=== PATIENT | female | born 1930 | race Caucasian/White ===

== ENCOUNTER 2017-05-24 09:20 | Emergency (ER) | payer MEDICARE ==
--- NOTE | 2017-05-24 09:55 | ED ---
General Adult HPI - General Chief complaint: Extremity Problem,Nontraumatic Stated complaint: left ankle/Foot pain Time Seen by Provider: 05/24/17 09:31 Source: patient, RN notes reviewed Mode of arrival: wheelchair Limitations: physical limitation - History of Present Illness Initial comments: 86-year-old female presents to the emergency department with a chief complaint of left foot and ankle swelling. Patient states that the swelling started about 12 days ago. She went to Dr. week ago he gave her steroids and she states that did not improve. Patient states that she only has pain to walk on it and she is laying still or has it up there is no pain. Patient denies any history of the past of this. Patient denies any fever or chills. Patient has a history of this in the past. Patient has a swelling to the knee. Patient denies any history of blood clots. Patient was concerned due to the continued swelling so she thought that she should be evaluated. She states she did [facility] however did not tell Social he thought that maybe she could be evaluated today. Patient denies any recent fever, chills, shortness of breath, chest pain, back pain, abdominal pain , nausea vomiting, numbness or tingling, dysuria or hematuria, constipation or diarrhea, headaches or visual changes, or any other current symptoms. - Related Data Home Medications Medication Instructions Recorded Confirmed Ascorbic Acid [Vitamin C] 500 mg PO DAILY 05/24/17 05/24/17 Biotin Forte 1 tab PO DAILY 05/24/17 05/24/17 Calcium Carbonate [Calcium] 1,200 mg PO DAILY 05/24/17 05/24/17 Cyanocobalamin (Vitamin B-12) 1,000 mcg PO DAILY 05/24/17 05/24/17 [Vitamin B-12] Epoetin Thomas [Procrit] 20,000 unit SQ QMONTH 05/24/17 05/24/17 Magnesium 200 mg PO DAILY 05/24/17 05/24/17 Multivitamins, Thera [Multivitamin 1 tab PO DAILY 05/24/17 05/24/17 (formulary)] Olmesartan Medoxomil [Benicar] 40 mg PO DAILY 05/24/17 05/24/17 Oxybutynin Chloride [Ditropan XL] 5 mg PO DAILY 05/24/17 05/24/17 Vit C/E/Zn/Coppr/Lutein/Zeaxan 1 cap PO BID 05/24/17 05/24/17 [Preservision Areds 2 Softgel] Allergies Allergy/AdvReac Type Severity Reaction Status Date / Time cefazolin [From Kefzol] AdvReac Unknown Verified 05/24/17 10:24 Penicillins AdvReac Unknown Verified 05/24/17 10:24 Sulfa (Sulfonamide AdvReac Unknown Verified 05/24/17 10:24 Antibiotics) Review of Systems ROS Statement: Those systems with pertinent positive or pertinent negative responses have been documented in the HPI. ROS Other: All systems not noted in ROS Statement are negative. Past Medical History Past Medical History: Hypertension Additional Past Medical History / Comment(s): anemia History of Any Multi-Drug Resistant Organisms: None Reported Past Surgical History: Adenoidectomy, Appendectomy, Joint Replacement, Orthopedic Surgery, Tonsillectomy Additional Past Surgical History / Comment(s): knee, hip - shoulder, left wrist Past Psychological History: No Psychological Hx Reported Smoking Status: Former smoker Past Alcohol Use History: Rare Past Drug Use History: None Reported General Exam - General Exam Comments Initial Comments: General: The patient is awake and alert, in no distress, and does not appear acutely ill. Neck: The neck is supple, there is no tenderness. Cardiovascular: There is a regular rate and rhythm. No murmur, rub or gallop is appreciated. Respiratory: Lungs are clear to auscultation, respirations are non-labored, breath sounds are equal. No wheezes, stridor, rales, or rhonchi. Musculoskeletal: Sensation intact with 2+ pulses. Pressure. Frontal motion of left hip left knee and left ankle. Patient is appear to have swelling around the left ankle. No redness noted. 2+ pulses throughout. Full range of motion. No point bony tenderness noted to the ankle. Mild tenderness patient of the calcaneus.. Negative Homans sign. Neurological: CN II-XII intact, There are no obvious motor or sensory deficits. Coordination appears grossly intact. Speech is normal. Skin: Skin is warm and dry and no rashes or lesions are noted. Psychiatric: Normal mood and affect. Limitations: physical limitation Course Vital Signs 05/24/17 09:25 Temperature 97.2 F L Pulse Rate 64 Respiratory 16 Rate Blood Pressure 170/73 O2 Sat by Pulse 98 Oximetry Procedures - Orthopedic Splinting/Casting Injury #1 Side: right Lower Extremity Injury Location: foot Lower Extremity Immobilizer: posterior splint (Short leg) Medical Decision Making - Medical Decision Making 86-year-old female presents with a swollen left foot. This time ultrasound is reviewed and negative. X-ray does show a possible calcaneal insufficiency fracture. She does have pain to this area. Did place wrist splint. Discussed using her walker home and follow-up dorsal. We discussed return parameters all patient's and family's questions. They stated the Rodriguez management plan. All questions have been answered. Patient discharged home. - Radiology Data Radiology results: report reviewed, image reviewed Disposition Clinical Impression: Closed left calcaneal fracture Disposition: HOME SELF-CARE Condition: Stable Instructions: Foot Fracture in Children (ED) Additional Instructions: Please use medication as discussed. Please follow up with family doctor if symptoms have not improved over the next two days. Please return to the emergency room if your symptoms increase or worsen or for any other concerns. Referrals: Venecia Wolfe MD [Primary Care Provider] - 1-2 days Devaughn Menendez MD [Medical Doctor] - 1-2 days Time of Disposition: 11:07
--- NOTE | 2017-05-24 10:25 | XR ---
EXAMINATION TYPE: XR ankle complete LT DATE OF EXAM: 05/24/2017 COMPARISON: NONE HISTORY: 86-year-old female pain and swelling for one week TECHNIQUE: 3 views FINDINGS: Osteopenia. Mild diffuse soft tissue swelling. Ankle mortise is with preservation of the di stal tibiofibular overlap. Talar dome appears intact. Subtle curvilinear band of sclerosis within the calcaneal body, superiorly on the lateral view. Otherwise, no acute fracture, subluxation, or disloc ation. Achilles tendon not well delineated. IMPRESSION: 1. Subtle band of sclerosis along the superior mid calcaneal body. Given osteopenia, these could repr esent some prominent trabecular struts. If there is calcaneal pain, a subtle insufficiency fracture w ould be included in the differential. 2. Prominent diffuse soft tissue swelling. Clinically correlate. 3. Achilles tendon not well delineated probably due to the degree of soft tissue swelling. If concern for Achilles tendon injury, ultrasound can be performed.
--- NOTE | 2017-05-24 10:53 | US ---
EXAMINATION TYPE: US venous doppler duplex LE LT DATE OF EXAM: 10:32 AM COMPARISON: None CLINICAL HISTORY: 78-year-old female Pain. No history of blood clots. Takes baby aspirin. Left ankle swelling. No injury. SIDE PERFORMED: Left TECHNIQUE: The lower extremity deep venous system is examined utilizing real time linear array sonog dolly with graded compression, doppler sonography and color-flow sonography. FINDINGS: VESSELS IMAGED: External Iliac Vein (EIV) Common Femoral Vein Deep Femoral Vein Greater Saphenous Vein * Femoral Vein Popliteal Vein Small Saphenous Vein * Proximal Calf Veins (* superficial vessels) Left Leg: Appears negative for DVT IMPRESSION: No evidence for DVT within the left lower extremity imaged from the groin to the upper calf.
[2017-05-24 11:36] VITALS: BP 196/78; PULSE 68; RESP 18; TEMP 98.6
== END 2017-05-24 11:36 | disposition home or self-care (01) ==
LOC: EC 09:20
DX: S92.002A Unspecified fracture of left calcaneus, initial encounter for closed fracture (principal); I10 Essential (primary) hypertension; Z98.890 Other specified postprocedural states; Z87.891 Personal history of nicotine dependence; Z79.899 Other long term (current) drug therapy; Z88.0 Allergy status to penicillin; Z88.1 Allergy status to other antibiotic agents; Z88.2 Allergy status to sulfonamides
CPT/HCPCS: 29515; 99284

== ENCOUNTER → 2017-06-14 | Outpatient (CLI) | payer MEDICARE ==
--- NOTE | 2017-06-14 16:29 | BD ---
EXAMINATION TYPE: MG DEXA axial skeleton. DATE OF EXAM: 06/14/2017 COMPARISON: NONE CLINICAL HISTORY: Height: 5 FT 9 1/2 IN Weight: 147NO FRAX RISK QUESTIONS: Alcohol (3 or more units per day): NO Family History (Parent hip fracture): NO Glucocorticoids (More than 3mos): NO (Ex: prednisone, prednisolone, methylprednisolone, dexamethasone, and hydrocortisone). History of Fracture in Adulthood: YES Secondary Osteoporosis: 1. Type 1 Diabetes: NO 2. Hyperthyroidism: NO 3. Menopause before 45: NO 4. Malnutrition: NO 5. Chronic liver disease: NO Rheumatoid Arthritis: NO Current Tobacco Use: NO RISK FACTORS HISTORY OF: History of Wrist Fracture: LT WRIST When: 2014 Surgery to Spine/Hip(right/left)/Wrist (right/left): LT HIP AND LT WRIST When: 7 YEARS AGOhIP/ 3 YEARS AGO LT WRIST Family History of Osteoporosis: YES Active: YES Postmenopausal woman: ROUGHTLY AGE 48 Lost more than 2 inches in height since high school: YES MEDICATIONS: Additional Medications: BENICAR, BLADDER MEDS, PROCRID SHOT ONCE A MONTH FOR ANEMIA Additional History: RECENT STRESS FX OF LT HEEL EXAM MEASUREMENTS: Bone mineral densitometry was performed using the [employer] System. Bone mineral density as measured about the Lumbar spine is: ----- L1-L4(G/cm2): 0.838 T Score Values are as follows: ----- L2: -3.2 ----- L3: -2.7 ----- L4: -1.8 ----- L1-L4: -2.9 LAST BONE DENSITY 20 YEARS AGO Bone mineral density about the R hip (g/cm2): 0.686 T Score values are as follows: -----R Neck: -2.5 -----R Total: -2.9 LAST BONE DENSITY 20 PLUS YEARS AGO IMPRESSION: Osteoporosis (T Score less than -2.5) as noted by T Score values at the There is increased fracture risk and therapy is usually indicated based on age. Re-Screen 1-2 years. NOTE: T-SCORE=SD OF THE YOUNG ADULT MEAN.
== END ==
LOC: RADBDWWP 10:00
PROVIDERS: ATTEND Internal Medicine Hematology & Oncology
DX: I12.9 Hypertensive chronic kidney disease with stage 1 through stage 4 chronic kidney disease, or unspecified chronic kidney disease (principal); N18.4 Chronic kidney disease, stage 4 (severe); D63.1 Anemia in chronic kidney disease; Z13.820 Encounter for screening for osteoporosis
CPT/HCPCS: 77080

== ENCOUNTER 2018-02-25 10:33 | Inpatient (IN) | payer MEDICARE ==
[2018-02-21 09:34] VITALS: BMI 19.5
[~2018-02-25 10:33] MED LIST: DEXAMETHASONE SOD PHOSPHATE 10 MG/ML 1 ML VIAL IV ONE; LACTATED RINGERS 1,000 ML IV SCH; MIDAZOLAM 2 MG/2 ML VIAL IV PRN; ONDANSETRON 4 MG/2 ML VIAL IVP ONE; Pre Op ABX Message 1 EACH MISC MISCELLANE ONE; fentaNYL (PF) 50 MCG/ML 2 ML AMP IV PRN
[2018-02-25 12:01] LABS: Basophils % (A) 0 %; Eosinophils # (A) 0.1 k/uL (0-0.7); Eosinophils % (A) 1 %; HCT 31.7 % (34.0-46.0); HGB 10.1 gm/dL (11.4-16.0); Hypochromasia Slight; Lymphocytes # (A) 1.1 k/uL (1.0-4.8); Lymphocytes % (A) 12 %; MCH 31.9 pg (25.0-35.0); MCV 99.8 fL (80.0-100.0); Macrocytosis Slight; Mean Platelet Volume 6.9; Monocytes # (A) 0.6 k/uL (0-1.0); Monocytes % (A) 6 %; Neutrophils # (A) 7.8 k/uL (1.3-7.7); Neutrophils % (A) 80 %; Platelet Count 488 k/uL (150-450); RBC 3.18 m/uL (3.80-5.40); RDW 15.4 % (11.5-15.5); WBC 9.7 k/uL (3.8-10.6)
[2018-02-25] MEDS ORDERED: BISACODYL 10 MG SUPP RECTAL PRN (12:01)
[2018-02-25] MEDS ORDERED: traMADol 50 MG TAB PO PRN (12:01)
[2018-02-25] MEDS ORDERED: MAGNESIUM HYDROXIDE 2,400 MG/10 ML CUP PO PRN (12:01)
[2018-02-25] MEDS ORDERED: HYDROmorphone 0.5 MG/0.5 ML SYRINGE IVP PRN (12:01)
[2018-02-25] MEDS ORDERED: NALOXONE 0.4 MG/ML 1 ML VIAL IV PRN (12:01)
[2018-02-25] MEDS ORDERED: NA PHOS,M-B/NA PHOS,DI-BA 133 ML ENEMA RECTAL PRN (12:01)
[2018-02-25] MEDS ORDERED: DIAZEPAM 5 MG TAB PO PRN (12:01)
[2018-02-25] MEDS ORDERED: ONDANSETRON 4 MG/2 ML VIAL IVP PRN (12:01)
[2018-02-25] MEDS ORDERED: LIDOCAINE 1% 20 ML VIAL (10MG/ML) FOR IV START INTRADERMA ONE (12:02)
[2018-02-25 12:11] LABS: Calcium 9.2 mg/dL (8.4-10.2); Potassium 4.9 mmol/L (3.5-5.1)
[2018-02-25] MEDS ORDERED: fentaNYL (PF) 50 MCG/ML 2 ML AMP ONE (14:32)
[2018-02-25] MEDS ORDERED: MIDAZOLAM 2 MG/2 ML VIAL ONE (14:32)
[2018-02-25] MEDS ORDERED: SODIUM CHLORIDE 0.9% 50 ML with CLINDAMYCIN 600 MG IV ONE ×2 (14:59)
--- NOTE | 2018-02-25 15:09 | P.OP ---
Date of Procedure: 02/25/18 Preoperative Diagnosis: Abscess right knee Postoperative Diagnosis: Abscess right knee Procedure(s) Performed: Incision and drainage of abscess right knee Anesthesia: spinal Surgeon: Wang Solomon Program Rep #1: Sultana Conroy Estimated Blood Loss (ml): 10 Pathology: other (Cultures 2) Condition: stable Disposition: PACU Indications for Procedure: This is an 87-year-old female that was seen by me in the office for redness and swelling on the lateral aspect of her right knee. There is evidence of an abscess on the lateral aspect of her right knee and this was drained in the office. Her abscess returned and after discussing the surgical nonsurgical treatment options with her at length I've recommended a formal incision and drainage of the abscess in the operating room. Consent was obtained. Operative Findings: The operative findings are consistent with an abscess of the right knee. Description of Procedure: Patient was seen and evaluated in the preoperative area, the operative site was marked with a skin marker. She was then brought to the operating room and given a spinal anesthetic by the anesthesia department. Preoperative antibiotics were held until after the cultures were obtained. The right lotion reason prepped and draped in usual sterile fashion. [place] timeout was then performed which confirmed the patient's name, surgical site, ALLERGIES, and consent. The lateral aspect of the knee was incised over the abscessed area. Large amount of purulent material was expressed. The abscess did not appear to communicate with the knee joint. This was cultured 2. Next the area was irrigated with pulsatile lavage. After thorough irrigation was performed, incision was lightly closed with 3-0 nylon. A sterile dressing was then applied and patient was transferred recovery room stable condition. The sound assistant NANCY Bernardo was required due the complexity of the surgery and the need for skilled surgical garment fitter.
[2018-02-25] MEDS ORDERED: LACTATED RINGERS 1,000 ML IV ONE ×2 (15:21)
[2018-02-25] MEDS: SODIUM CHLORIDE 0.9% 1,000 ML IV SCH (18:00)
[2018-02-25] MEDS ORDERED: ACETAMINOPHEN TAB 325 MG TAB PO PRN (18:10)
--- NOTE | 2018-02-25 18:34 | P.CONS ---
History of Present Illness - Reason for Consult Possible acute renal failure. - History of Present Illness 87-year-old pleasant female admitted for elective abscess in the lateral aspect of the right knee drainage. Patient underwent incision and drainage of the abscess patient was seen in orthopedic surgery office about a week ago with swelling in the lateral aspect of the left knee with a small abscess which was drained in the office cultures were opted at that time showed strep species which is pansensitive. Patient underwent incision and drainage here because of for nonimprovement and in of her symptoms and was admitted for monitoring. Patient was started on clindamycin. Patient denied any pain at this point of time patient is clinically doing well patient is on multiple medications for pain and opiates will be discontinued as this will be discontinued because of her age. Patient is high risk for delirium from these medications. Patient is already getting tramadol will add Tylenol for her pain. Patient denied any previous history of kidney disease heart disease. Patient does have history of hypertension patient is on PIETER inhibitor patient's creatinine is 1.8 I do not have any of her previous creatinine available at this time to compare to. Patient's BUN/creatinine ratio is consistent with renal azotemia patient does have chronic diarrhea goes 2-3 times a day and the follows up with Dr. Arellano at him as an outpatient for this diarrhea. Patient has multiple ALLERGIES to cephalosporins, penicillins, sulfa drugs because of which patient was started on clindamycin which is appropriate and infectious disease was consulted by primary service, orthopedic surgery. Review of Systems REVIEW OF SYSTEMS: CONSTITUTIONAL: No fever, no malaise, no fatigue. HEENT: No recent visual problems or hearing problems. Denied any sore throat. CARDIOVASCULAR: No chest pain, orthopnea, PND, no palpitations, no syncope. PULMONARY: No shortness of breath, no cough, no hemoptysis. GASTROINTESTINAL: No diarrhea, no nausea, no vomiting, no abdominal pain. Normoactive bowel sounds. NEUROLOGICAL: No headaches, no weakness, no numbness. HEMATOLOGICAL: Denies any bleeding or petechiae. GENITOURINARY: Denies any burning micturition, frequency, or urgency. MUSCULOSKELETAL/RHEUMATOLOGICAL: Denies any joint pain, swelling, or any muscle pain. ENDOCRINE: Denies any polyuria or polydipsia. The rest of the 14-point review of systems is negative. Past Medical History Past Medical History: Hypertension Additional Past Medical History / Comment(s): RT KNEE WRAPPED post I&D today 02/25 w/ Dr Jane, HX OF COLITIS, anemia, URINARY INCONTINENCE History of Any Multi-Drug Resistant Organisms: None Reported Past Surgical History: Adenoidectomy, Appendectomy, Joint Replacement, Orthopedic Surgery, Tonsillectomy Additional Past Surgical History / Comment(s): RT knee SX AND REPLACEMENT, hip - shoulder, left wrist Past Anesthesia/Blood Transfusion Reactions: No Reported Reaction Past Psychological History: No Psychological Hx Reported Smoking Status: Former smoker Past Alcohol Use History: Rare Additional Past Alcohol Use History / Comment(s): QUIT SMOKING APPROX 1972, SMOKED FOR 10 YRS LESS THAN 1PPD Past Drug Use History: None Reported - Past Family History Mother Family Medical History: No Reported History Medications and Allergies Home Medications Medication Instructions Recorded Confirmed Type Ascorbic Acid [Vitamin C] 500 mg PO DAILY 05/24/17 02/25/18 History Biotin Forte 1 tab PO DAILY 05/24/17 02/25/18 History Calcium Carbonate [Calcium] 1,200 mg PO DAILY 05/24/17 02/25/18 History Cyanocobalamin (Vitamin B-12) 1,000 mcg PO DAILY 05/24/17 02/25/18 History [Vitamin B-12] Epoetin Thomas [Procrit] 20,000 unit SQ QMONTH 05/24/17 02/25/18 History Magnesium 200 mg PO DAILY 05/24/17 02/25/18 History Multivitamins, Thera [Multivitamin 1 tab PO DAILY 05/24/17 02/25/18 History (formulary)] Olmesartan Medoxomil [Benicar] 40 mg PO DAILY 05/24/17 02/25/18 History Oxybutynin Chloride [Ditropan XL] 5 mg PO DAILY 05/24/17 02/25/18 History Vit C/E/Zn/Coppr/Lutein/Zeaxan 1 cap PO BID 05/24/17 02/25/18 History [Preservision Areds 2 Softgel] Allergies Allergy/AdvReac Type Severity Reaction Status Date / Time cefazolin [From Kefzol] Allergy Itching/SWE Verified 02/25/18 11:19 LLING Penicillins Allergy Itching/SWE Verified 02/25/18 11:19 LLING Sulfa (Sulfonamide Allergy Itching/SWE Verified 02/25/18 11:19 Antibiotics) LLING Physical Exam Vitals: Vital Signs Temp Pulse Pulse Resp BP BP Pulse Ox 02/25/18 18:04 16 02/25/18 17:01 16 185/78 98 02/25/18 16:01 72 16 135/71 97 02/25/18 15:46 69 16 126/56 97 02/25/18 15:31 73 16 105/53 97 02/25/18 15:16 97.1 F L 74 16 111/53 97 02/25/18 12:00 97.6 F 90 16 160/69 96 Intake and Output 02/25/18 02/25/18 02/25/18 06:59 14:59 22:59 Intake Total 554 100 Output Total 10 Balance 554 90 Intake: IV 554 100 Output: Estimated Blood Loss 10 Other: Weight 63.503 kg PHYSICAL EXAMINATION: GENERAL: The patient is alert and oriented x3, not in any acute distress. Thin will pleasant female HEENT: Pupils are round and equally reacting to light. EOMI. No scleral icterus. No conjunctival pallor. Normocephalic, atraumatic. No pharyngeal erythema. No thyromegaly. CARDIOVASCULAR: S1 and S2 present. No murmurs, rubs, or gallops. PULMONARY: Chest is clear to auscultation, no wheezing or crackles. ABDOMEN: Soft, nontender, nondistended, normoactive bowel sounds. No palpable organomegaly. MUSCULOSKELETAL: Right knee is covered with an Pieter bandage EXTREMITIES: No cyanosis, clubbing, or pedal edema. NEUROLOGICAL: Gross neurological examination did not reveal any focal deficits. SKIN: No rashes. Results CBC & Chem 7: 02/25/18 11:50 02/25/18 10:24 Labs: Abnormal Lab Results - Last 24 Hours (Table) 02/25/18 02/25/18 Range/Units 10:24 11:50 RBC 3.18 L (3.80-5.40) m/uL Hgb 10.1 L (11.4-16.0) gm/dL Hct 31.7 L (34.0-46.0) % Plt Count 488 H (150-450) k/uL Neutrophils # 7.8 H (1.3-7.7) k/uL Carbon Dioxide 21 L (22-30) mmol/L BUN 51 H (7-17) mg/dL Creatinine 1.80 H (0.52-1.04) mg/dL Assessment and Plan Plan: -Abscess in the lateral aspect of the right knee: Status post incision and drainage postoperative day 0: Patient is on clindamycin which will be continued infectious disease will evaluate the patient. Pain management as mentioned above -Renal failure most probably acute renal failure from BUN and creatinine ratio it appears like patient may stay has prerenal azotemia will continue with IV fluids increase IV fluid rate to 100 mL/h repeat basic metabolic profile tomorrow PIETER inhibitor will be held. -Hypertension holding of PIETER inhibitor because of renal dysfunction
[2018-02-25] MEDS: CLINDAMYCIN 900 MG in DEXTROSE 5% IN WATER 50 ML IVPB SCH ×2 (20:59)
[2018-02-25] MEDS: HEPARIN SODIUM,PORCINE 5,000 UNIT/ML 1 ML VIAL SQ SCH (20:59)
[2018-02-25] MEDS: SENNOSIDES-DOCUSATE SODIUM 1 EACH TAB PO SCH (20:59)
[2018-02-26] MEDS: CLINDAMYCIN 900 MG in DEXTROSE 5% IN WATER 50 ML IVPB SCH ×2 (02:15)
[2018-02-26] MEDS: SODIUM CHLORIDE 0.9% 1,000 ML IV SCH ×3 (03:41→21:56)
[2018-02-26] MEDS: HEPARIN SODIUM,PORCINE 5,000 UNIT/ML 1 ML VIAL SQ SCH ×2 (08:25→20:57)
[2018-02-26 08:46] LABS: Basophils # (A) 0.1 k/uL (0-0.2); Basophils % (A) 1 %; Eosinophils # (A) 0.2 k/uL (0-0.7); Eosinophils % (A) 2 %; HCT 29.7 % (34.0-46.0); HGB 9.2 gm/dL (11.4-16.0); Hypochromasia Moderate; Lymphocytes # (A) 1.2 k/uL (1.0-4.8); Lymphocytes % (A) 15 %; MCH 31.3 pg (25.0-35.0); MCHC 31.1 g/dL (31.0-37.0); MCV 100.7 fL (80.0-100.0); Macrocytosis Slight; Mean Platelet Volume 6.6; Monocytes # (A) 0.5 k/uL (0-1.0); Monocytes % (A) 7 %; Neutrophils # (A) 5.7 k/uL (1.3-7.7); Neutrophils % (A) 74 %; Platelet Count 483 k/uL (150-450); RBC 2.95 m/uL (3.80-5.40); RDW 15.1 % (11.5-15.5); WBC 7.7 k/uL (3.8-10.6)
[2018-02-26 08:50] LABS: Calcium 8.8 mg/dL (8.4-10.2); Potassium 5.3 mmol/L (3.5-5.1)
[2018-02-26] MEDS ORDERED: MELOXICAM 7.5 MG TAB PO SCH (09:00)
[2018-02-26] MEDS ORDERED: VANCOMYCIN IV PER PHARMACY 1 EACH MISC MISCELLANE PRN (16:32)
--- NOTE | 2018-02-26 17:20 | P.PN ---
Subjective Progress Note Date: 02/26/18 This is an 87 year-old female who is status post incision and drainage of an abscess of the right knee. Patient states that her pain is well-controlled today. Patient denies any new symptoms or complaints today. Patient denies any fever/chills, numbness, weakness or tingling. Objective - Vital Signs Vital signs: Vital Signs Temp 96.3 F L 02/26/18 07:00 Pulse 85 02/26/18 07:00 Resp 16 02/26/18 07:00 BP 164/79 02/26/18 07:00 Pulse Ox 99 02/26/18 07:00 Intake & Output 02/25/18 02/26/18 02/26/18 18:59 06:59 18:59 Intake Total 654 Output Total 10 Balance 644 Weight 63.503 kg 63.503 kg 63.503 kg Intake: IV 654 Output: Estimated Blood Loss 10 Other: Voiding Method Bedside Commode # Voids 2 - Exam On exam patient is well-appearing, alert and oriented x3, and lying in bed in no acute distress. There is mild drainage noted on the dressing. Dressing is intact. Patient has good range of motion of the right knee. Sensation intact. Calf is soft and nontender to palpation. Neurovascular status and circulatory status are intact. - Labs CBC & Chem 7: 02/26/18 07:52 02/26/18 07:52 Labs: Abnormal Lab Results - Last 24 Hours (Table) 02/26/18 02/26/18 Range/Units 07:52 07:52 RBC 2.95 L (3.80-5.40) m/uL Hgb 9.2 L (11.4-16.0) gm/dL Hct 29.7 L (34.0-46.0) % MCV 100.7 H (80.0-100.0) fL Plt Count 483 H (150-450) k/uL Potassium 5.3 H (3.5-5.1) mmol/L Chloride 108 H (98-107) mmol/L Carbon Dioxide 21 L (22-30) mmol/L BUN 35 H (7-17) mg/dL Creatinine 1.35 H (0.52-1.04) mg/dL Microbiology - Last 24 Hours (Table) 02/25/18 15:07 Gram Stain - Preliminary Knee - Right Wound Culture - Preliminary 02/25/18 15:07 Gram Stain - Preliminary Knee - Right Wound Culture - Preliminary 02/25/18 15:07 Anaerobic Culture - Preliminary Knee - Right 02/25/18 15:07 Anaerobic Culture - Preliminary Knee - Right Assessment and Plan (1) Infection of right knee Current Visit: Yes Status: Acute Code(s): M00.9 - PYOGENIC ARTHRITIS, UNSPECIFIED SNOMED Code(s): 252215137 (2) Status post incision and drainage Current Visit: Yes Status: Acute Code(s): Z98.890 - OTHER SPECIFIED POSTPROCEDURAL STATES SNOMED Code(s): 700052716 (3) Abscess of knee, right Current Visit: Yes Status: Acute Code(s): L02.415 - CUTANEOUS ABSCESS OF RIGHT LOWER LIMB SNOMED Code(s): 12834762 Plan: 1. Weight-bearing as tolerated to the right lower extremity. 2. Daily dressing changes. 3. Cultures pending. 4. Consult infectious disease. 5. Appreciate input from medicine. 6. Possible discharge home in the next 1-2 days.
[2018-02-26] MEDS ORDERED: VANCOMYCIN 1,250 MG in SODIUM CHLORIDE 0.9% 250 ML IVPB STA ×2 (17:29→21:12)
--- NOTE | 2018-02-26 17:56 | P.PN ---
Subjective No overnight events patient's creatinine did improve continue with IV fluids patient doesn't have any pulmonary edema at this point of time. Constitutional: Denied any fatigue denied any fever. Cardio vascular: denied any chest pain, palpitations Gastrointestinal denied any nausea vomiting Pulmonary: Denied any shortness of breath cough Neurologic denied any new focal deficits Objective - Vital Signs Vital signs: Vital Signs Temp 97.0 F L 02/26/18 15:00 Pulse 77 02/26/18 15:00 Resp 16 02/26/18 15:00 BP 114/54 02/26/18 15:00 Pulse Ox 95 02/26/18 15:00 Intake & Output 02/25/18 02/26/18 02/26/18 18:59 06:59 18:59 Intake Total 654 Output Total 10 Balance 644 Weight 63.503 kg 63.503 kg 63.503 kg Intake: IV 654 Output: Estimated Blood Loss 10 Other: Voiding Method Bedside Commode # Voids 2 - Exam PHYSICAL EXAMINATION: GENERAL: The patient is alert and oriented x3, not in any acute distress. Thin will pleasant female HEENT: Pupils are round and equally reacting to light. EOMI. No scleral icterus. No conjunctival pallor. Normocephalic, atraumatic. No pharyngeal erythema. No thyromegaly. CARDIOVASCULAR: S1 and S2 present. No murmurs, rubs, or gallops. PULMONARY: Chest is clear to auscultation, no wheezing or crackles. ABDOMEN: Soft, nontender, nondistended, normoactive bowel sounds. No palpable organomegaly. MUSCULOSKELETAL: Right knee is covered with an Pieter bandage EXTREMITIES: No cyanosis, clubbing, or pedal edema. NEUROLOGICAL: Gross neurological examination did not reveal any focal deficits. SKIN: No rashes. - Labs CBC & Chem 7: 02/26/18 07:52 02/26/18 07:52 Labs: Abnormal Lab Results - Last 24 Hours (Table) 02/26/18 02/26/18 Range/Units 07:52 07:52 RBC 2.95 L (3.80-5.40) m/uL Hgb 9.2 L (11.4-16.0) gm/dL Hct 29.7 L (34.0-46.0) % MCV 100.7 H (80.0-100.0) fL Plt Count 483 H (150-450) k/uL Potassium 5.3 H (3.5-5.1) mmol/L Chloride 108 H (98-107) mmol/L Carbon Dioxide 21 L (22-30) mmol/L BUN 35 H (7-17) mg/dL Creatinine 1.35 H (0.52-1.04) mg/dL Microbiology - Last 24 Hours (Table) 02/25/18 15:07 Gram Stain - Preliminary Knee - Right Wound Culture - Preliminary 02/25/18 15:07 Gram Stain - Preliminary Knee - Right Wound Culture - Preliminary 02/25/18 15:07 Anaerobic Culture - Preliminary Knee - Right 02/25/18 15:07 Anaerobic Culture - Preliminary Knee - Right Assessment and Plan Plan: -Abscess in the lateral aspect of the right knee: Status post incision and drainage postoperative day 0: Patient is on clindamycin which will be continued infectious disease evaluated the patient today, patient's pain is well- controlled -Renal failure most probably acute renal failure from BUN and creatinine ratio it appears like patient may stay has prerenal azotemia will continue with IV fluids increase IV fluid rate to 100 mL/h repeat basic metabolic profile tomorrow. Patient did have improvement in creatinine from 1.7-1.3 PIETER inhibitor will be held. -Hypertension holding of PIETER inhibitor because of renal dysfunction, lead the blood pressures stay bit higher because of renal dysfunction
--- NOTE | 2018-02-26 18:44 | CONS ---
CONSULTATION DATE OF SERVICE: 02/26/2018 REASON FOR CONSULTATION: Right knee abscess, status post drainage, and antibiotic recommendations. HISTORY OF PRESENT ILLNESS: The patient is an 87-year-old female with a past medical history significant for right knee arthroplasty many years ago. The patient developed pain, swelling and redness to the lateral aspect of her right knee that apparently has been going on for a week or so. There is a vague history of trauma prior to that. This was drained in the outpatient setting by Dr. Solomon. The patient subsequently was brought to the hospital and she had drainage of the right lateral knee abscess with a large amount of purulent material expressed. Apparently the abscess did not communicate to the knee joint. The patient did receive clindamycin perioperatively. Infectious Disease was consulted for further recommendations regarding antibiotic therapy. The patient's cultures were positive for Staphylococcus lugdunensis back on 02/18/2018. The patient is currently afebrile. The patient denies significant chest pain or shortness of breath or cough. No abdominal pain. She does have very mild pain to the right knee currently; more of a dull aching pain, 3 to 4 out of 10, and no radiation. No abdominal pain. No nausea or vomiting and no diarrhea. REVIEW OF SYSTEMS: CONSTITUTIONAL: Positive for weakness. Denies any high-grade fever. EYES: No complaint. ENT: No complaint. RESPIRATORY: No complaint. CARDIOVASCULAR: No complaint. GENITOURINARY: No complaint. GASTROINTESTINAL: No complaint. MUSCULOSKELETAL: As per HPI. INTEGUMENTARY: As per HPI. PSYCHOLOGICAL: No complaint. ENDOCRINE: No complaint. NEUROLOGICAL: No complaint. PAST MEDICAL HISTORY: 1. Hypertension. 2. Osteoarthritis. 3. Urinary incontinence. 4. Colitis. PAST SURGICAL HISTORY: 1. Adenoidectomy. 2. Appendectomy. 3. Right knee replacement. 4. Tonsillectomy. SOCIAL HISTORY: Remote history of smoking. Quit smoking back in 1972. Rarely drinks. No drug use. FAMILY HISTORY: No pertinent findings noticed. ALLERGIES: 1. PENICILLIN. 2. SULFA. 3. CEFAZOLIN. Mostly with a rash. No anaphylaxis. CURRENT MEDICATIONS: 1. The patient has received clindamycin. 2. Tramadol. 3. Senokot. 4. Zofran. 5. Narcan. 6. Milk of magnesia. 7. Heparin. 8. Dulcolax. 9. Tylenol. PHYSICAL EXAMINATION: Her blood pressure is 164/79 with a pulse of 85, temperature 96.3. She is 99% on room air. General description is an elderly female lying in bed in no distress. No tachypnea or accessory muscle of respiration use. HEENT examination shows pallor. No scleral icterus. Oral mucosa membrane is dry. No pharyngeal erythema or thrush. NECK: Trachea is central. No thyromegaly. LUNGS: Unlabored breathing. Clear to auscultation anteriorly. No wheeze or crackle. HEART: S1, S2. Regular rate and rhythm. ABDOMEN: Soft. No tenderness. No guarding or rigidity. EXTREMITIES: No edema of the feet. Right knee with minimal swelling, minimal drainage. Slightly warm to touch. No foul smell. Neurologically the patient is awake, alert, oriented x3. Mood and affect normal. LABS: Hemoglobin is 9.2, white count 7.7, BUN of 35, creatinine 1.35. Potassium was 5.3. OR cultures are currently pending. No blood cultures were done. Culture done from synovial fluid back on 02/18 showed Staphylococcus lugdunensis, which was penicillin- sensitive. DIAGNOSTIC IMPRESSION AND PLAN: 1. Patient with right lateral knee abscess with outpatient culture positive for Streptococcus lugdunensis in a patient who is status post drainage of this abscess with operative report indicative of no communication with the knee joint. In view of the underlying prosthetic knee, would recommend aggressive treatment of this infection to prevent involvement of the knee. 2. Patient with a history of PENICILLIN, SULFA AND CEFAZOLIN ALLERGY, which limits the number of antibiotics that could be safely used. PLAN: 1. Blood cultures x2 STAT. 2. Will obtain baseline sed rate and CRP. 3. Vancomycin, Pharmacy to dose; target of 415. 4. The patient likely will need a PICC line for outpatient IV antibiotic therapy, as we do not have a good oral option at this point. Thank you for this consultation. Will follow this patient along with you. Daughter was present at the bedside. Her questions were answered. MMODL / IJN: [id number] /
[2018-02-26 19:35] LABS: Erythrocyte Sedimentation Rate 111 mm/hr (0-20)
[2018-02-26] MEDS: SENNOSIDES-DOCUSATE SODIUM 1 EACH TAB PO SCH (20:58)
[2018-02-27] MEDS: HEPARIN SODIUM,PORCINE 5,000 UNIT/ML 1 ML VIAL SQ SCH ×2 (08:28→22:35)
[2018-02-27] MEDS: OXYBUTYNIN XL 5 MG TAB.ER.24 PO SCH (08:28)
[2018-02-27 08:33] LABS: Calcium 8.6 mg/dL (8.4-10.2)
--- NOTE | 2018-02-27 10:11 | P.PN ---
Subjective Progress Note Date: 02/27/18 This is an 87 year-old female who is status post incision and drainage of an abscess of the right knee. This is postoperative day #2. Patient is seen and evaluated at bedside with Dr. Wang Solomon. Patient states that her pain in the right knee has improved. Patient denies any new symptoms or complaints today. Patient denies any fever/chills, numbness, weakness or tingling. Objective - Vital Signs Vital signs: Vital Signs Temp 97.0 F L 02/27/18 06:16 Pulse 78 02/27/18 06:16 Resp 14 02/27/18 06:16 BP 136/64 02/27/18 06:16 Pulse Ox 97 02/27/18 06:16 Intake & Output 02/26/18 02/27/18 02/27/18 18:59 06:59 18:59 Weight 63.503 kg 63.503 kg Other: Voiding Method Bedside Commode Bedside Commode # Voids 1 1 # Bowel Movements 1 - Exam On exam patient is well-appearing, alert and oriented x3, and lying in bed in no acute distress. There is mild drainage noted on the dressing. Dressing is intact. Patient has good range of motion of the right knee. Sensation intact. Calf is soft and nontender to palpation. Neurovascular status and circulatory status are intact. - Labs CBC & Chem 7: 02/26/18 07:52 02/27/18 07:59 Labs: Abnormal Lab Results - Last 24 Hours (Table) 02/26/18 02/26/18 02/26/18 Range/Units 07:52 07:52 19:27 RBC 2.95 L (3.80-5.40) m/uL Hgb 9.2 L (11.4-16.0) gm/dL Hct 29.7 L (34.0-46.0) % MCV 100.7 H (80.0-100.0) fL Plt Count 483 H (150-450) k/uL ESR 111 H (0-20) mm/hr Chloride (98-107) mmol/L BUN (7-17) mg/dL Creatinine (0.52-1.04) mg/dL C-Reactive Protein 30.2 H (<10.0) mg/L Vitamin B12 1277.0 H (200.0-944.0) pg/mL 02/27/18 Range/Units 07:59 RBC (3.80-5.40) m/uL Hgb (11.4-16.0) gm/dL Hct (34.0-46.0) % MCV (80.0-100.0) fL Plt Count (150-450) k/uL ESR (0-20) mm/hr Chloride 111 H (98-107) mmol/L BUN 31 H (7-17) mg/dL Creatinine 1.22 H (0.52-1.04) mg/dL C-Reactive Protein (<10.0) mg/L Vitamin B12 (200.0-944.0) pg/mL Microbiology - Last 24 Hours (Table) 02/25/18 15:07 Gram Stain - Preliminary Knee - Right Wound Culture - Preliminary 02/25/18 15:07 Gram Stain - Preliminary Knee - Right Wound Culture - Preliminary Assessment and Plan (1) Infection of right knee Current Visit: Yes Status: Acute Code(s): M00.9 - PYOGENIC ARTHRITIS, UNSPECIFIED SNOMED Code(s): 900258977 (2) Status post incision and drainage Current Visit: Yes Status: Acute Code(s): Z98.890 - OTHER SPECIFIED POSTPROCEDURAL STATES SNOMED Code(s): 732919638 (3) Abscess of knee, right Current Visit: Yes Status: Acute Code(s): L02.415 - CUTANEOUS ABSCESS OF RIGHT LOWER LIMB SNOMED Code(s): 26227309 Plan: 1. Weight-bearing as tolerated to the right lower extremity. 2. Daily dressing changes. 3. Cultures pending. 4. Appreciate input from infectious disease. Patient is awaiting PICC line. 5. Appreciate input from medicine. 6. Possible discharge home in the next 1-2 days.
[2018-02-27] MEDS: SODIUM CHLORIDE 0.9% 1,000 ML IV SCH (13:17)
--- NOTE | 2018-02-27 14:22 | P.PN ---
Subjective No overnight events patient's creatinine did improve continue with IV fluids patient doesn't have any pulmonary edema at this point of time. 02/27/2018 Patient's creatinine improved to 1.2 IV fluids will be discontinued patient is on IV vancomycin presently. Constitutional: Denied any fatigue denied any fever. Cardio vascular: denied any chest pain, palpitations Gastrointestinal denied any nausea vomiting Pulmonary: Denied any shortness of breath cough Neurologic denied any new focal deficits Objective - Vital Signs Vital signs: Vital Signs Temp 97.0 F L 02/27/18 06:16 Pulse 78 02/27/18 06:16 Resp 14 02/27/18 06:16 BP 136/64 02/27/18 06:16 Pulse Ox 97 02/27/18 06:16 Intake & Output 02/26/18 02/27/18 02/27/18 18:59 06:59 18:59 Weight 63.503 kg 63.503 kg Other: Voiding Method Bedside Commode Bedside Commode # Voids 1 1 # Bowel Movements 1 - Exam PHYSICAL EXAMINATION: GENERAL: The patient is alert and oriented x3, not in any acute distress. Thin will pleasant female HEENT: Pupils are round and equally reacting to light. EOMI. No scleral icterus. No conjunctival pallor. Normocephalic, atraumatic. No pharyngeal erythema. No thyromegaly. CARDIOVASCULAR: S1 and S2 present. No murmurs, rubs, or gallops. PULMONARY: Chest is clear to auscultation, no wheezing or crackles. ABDOMEN: Soft, nontender, nondistended, normoactive bowel sounds. No palpable organomegaly. MUSCULOSKELETAL: Right knee is covered with an Pieter bandage EXTREMITIES: No cyanosis, clubbing, or pedal edema. NEUROLOGICAL: Gross neurological examination did not reveal any focal deficits. SKIN: No rashes. - Labs CBC & Chem 7: 02/26/18 07:52 02/27/18 07:59 Labs: Abnormal Lab Results - Last 24 Hours (Table) 02/26/18 02/26/18 02/26/18 Range/Units 07:52 07:52 19:27 RBC 2.95 L (3.80-5.40) m/uL Hgb 9.2 L (11.4-16.0) gm/dL Hct 29.7 L (34.0-46.0) % MCV 100.7 H (80.0-100.0) fL Plt Count 483 H (150-450) k/uL ESR 111 H (0-20) mm/hr Chloride (98-107) mmol/L BUN (7-17) mg/dL Creatinine (0.52-1.04) mg/dL C-Reactive Protein 30.2 H (<10.0) mg/L Vitamin B12 1277.0 H (200.0-944.0) pg/mL 02/27/18 Range/Units 07:59 RBC (3.80-5.40) m/uL Hgb (11.4-16.0) gm/dL Hct (34.0-46.0) % MCV (80.0-100.0) fL Plt Count (150-450) k/uL ESR (0-20) mm/hr Chloride 111 H (98-107) mmol/L BUN 31 H (7-17) mg/dL Creatinine 1.22 H (0.52-1.04) mg/dL C-Reactive Protein (<10.0) mg/L Vitamin B12 (200.0-944.0) pg/mL Microbiology - Last 24 Hours (Table) 02/25/18 15:07 Gram Stain - Preliminary Knee - Right Wound Culture - Preliminary 02/25/18 15:07 Gram Stain - Preliminary Knee - Right Wound Culture - Preliminary Assessment and Plan Plan: -Abscess in the lateral aspect of the right knee: Status post incision and drainage postoperative day 0: Patient is on clindamycin which will be continued infectious disease evaluated the patient today, patient's pain is well- controlled -Renal failure most probably acute renal failure from BUN and creatinine ratio it appears like patient may stay has prerenal azotemia will continue with IV fluids increase IV fluid rate to 100 mL/h repeat basic metabolic profile tomorrow. Patient did have improvement in creatinine from 1.7-1.3 PIETER inhibitor will be held. -Hypertension holding of PIETER inhibitor because of renal dysfunction, lead the blood pressures stay bit higher because of renal dysfunction
[2018-02-27] MEDS: VANCOMYCIN 1,250 MG in SODIUM CHLORIDE 0.9% 250 ML IVPB SCH (17:21)
[2018-02-27] MEDS: SENNOSIDES-DOCUSATE SODIUM 1 EACH TAB PO SCH (22:34)
--- NOTE | 2018-02-28 05:28 | PN ---
PROGRESS NOTE DATE OF SERVICE: 02/27/2018 REASON FOR FOLLOWUP: Right lateral knee abscess and cellulitis. INTERVAL HISTORY: The patient is afebrile. She has been breathing comfortably. Denies having any chest pain, cough. No abdominal pain. the right lateral knee area. PHYSICAL EXAMINATION: On examination, blood pressure 138/64 with a pulse of 79, temperature 98.8. She is 97% on room air. General description is an elderly female lying in bed in no distress. RESPIRATORY SYSTEM: Unlabored breathing, clear to auscultation anteriorly. HEART: S1, S2. Regular rate and rhythm. ABDOMEN: Soft, no tenderness. Right lateral knee wound is currently dressed. Minimal drainage on the dressing. LABS: BUN of 21, creatinine 1.22. Wound culture currently pending. DIAGNOSTIC IMPRESSION AND PLAN: Patient with right lateral knee abscess and cellulitis. Outpatient culture positive for Streptococcus lugdunensis. The patient did have multiple antibiotic allergies. Currently on vancomycin; however, in view of advanced age and high risk of nephrotoxicity in outpatient setting, we will get a PICC line and switch antibiotic therapy to daptomycin for least 2 to 3 weeks depending on the clinical response. Continue with supportive care. MMODL / IJN: [id number] /
[2018-02-28 07:28] LABS: Basophils % (A) 1 %; Eosinophils # (A) 0.2 k/uL (0-0.7); Eosinophils % (A) 3 %; HCT 27.8 % (34.0-46.0); HGB 8.5 gm/dL (11.4-16.0); Hypochromasia Slight; Lymphocytes # (A) 1.5 k/uL (1.0-4.8); Lymphocytes % (A) 17 %; MCH 30.6 pg (25.0-35.0); MCHC 30.7 g/dL (31.0-37.0); MCV 99.8 fL (80.0-100.0); Macrocytosis Slight; Mean Platelet Volume 6.9; Monocytes # (A) 0.7 k/uL (0-1.0); Monocytes % (A) 8 %; Neutrophils % (A) 70 %; Platelet Count 438 k/uL (150-450); RBC 2.79 m/uL (3.80-5.40); WBC 8.6 k/uL (3.8-10.6)
--- NOTE | 2018-02-28 08:10 | P.DS ---
Providers Date of admission: 02/26/18 09:03 Expected date of discharge: 02/28/18 Attending physician: Wang Solomon Consults: 02/25/18 16:53 Consult Physician Routine Consulting Provider: Josselin Vargas Consult Reason/Comments: medical management Do you want consulting provider notified?: Yes 02/25/18 16:55 Consult Physician Routine Consulting Provider: Eber Archer Consult Reason/Comments: right knee abscess, post i&d 02/25/18 Do you want consulting provider notified?: Yes Primary care physician: Yaneth Cuadra - Discharge Diagnosis(es) (1) Infection of right knee Current Visit: Yes Status: Acute (2) Status post incision and drainage Current Visit: Yes Status: Acute (3) Abscess of knee, right Current Visit: Yes Status: Acute Hospital Course: This is an 87-year-old male who presented as an outpatient with an abscess to the lateral aspect of the right knee. The patient was started on a course of outpatient antibiotics, but the abscess did not improve. The patient presents for evaluation. After discussion and consideration patient elects to proceed with incision and drainage of the right knee abscess. The patient is seen preoperatively by Dr. Solomon. Patient is admitted to [facility] on 02/25/2018 for incision and drainage of right knee abscess. The procedure is performed without complication or sequelae. The patient is doing well postoperatively. Labs and vital signs are stable on day of discharge. Patient received a PICC line for outpatient IV antibiotics per infectious disease. On day of discharge patient's knee incision is healing well. There is minimal erythema. There is no drainage noted at this time. There is minimal soft tissue swelling to the knee. Patient has full foot and ankle motion without difficulty or pain. Neurovascular status to the right lower extremity is intact. Patient is discharged to rehab in good condition. Please see med rec for accurate list of home medications. Plan - Discharge Summary Discharge Rx Participant: Yes New Discharge Prescriptions: New Acetaminophen Tab [Tylenol Tab] 1 - 2 tab PO Q6H PRN #90 tablet PRN Reason: Pain No Action Oxybutynin Chloride [Ditropan XL] 5 mg PO DAILY Ascorbic Acid [Vitamin C] 500 mg PO DAILY Cyanocobalamin (Vitamin B-12) [Vitamin B-12] 1,000 mcg PO DAILY Epoetin Thomas [Procrit] 20,000 unit SQ QMONTH Vit C/E/Zn/Coppr/Lutein/Zeaxan [Preservision Areds 2 Softgel] 1 cap PO BID Multivitamins, Thera [Multivitamin (formulary)] 1 tab PO DAILY Magnesium 200 mg PO DAILY Calcium Carbonate [Calcium] 1,200 mg PO DAILY Biotin Forte 1 tab PO DAILY Olmesartan Medoxomil [Benicar] 40 mg PO DAILY Discharge Medication List Ascorbic Acid [Vitamin C] 500 mg PO DAILY 05/24/17 [History] Biotin Forte 1 tab PO DAILY 05/24/17 [History] Calcium Carbonate [Calcium] 1,200 mg PO DAILY 05/24/17 [History] Cyanocobalamin (Vitamin B-12) [Vitamin B-12] 1,000 mcg PO DAILY 05/24/17 [ History] Epoetin Thomas [Procrit] 20,000 unit SQ QMONTH 05/24/17 [History] Magnesium 200 mg PO DAILY 05/24/17 [History] Multivitamins, Thera [Multivitamin (formulary)] 1 tab PO DAILY 05/24/17 [History ] Olmesartan Medoxomil [Benicar] 40 mg PO DAILY 05/24/17 [History] Oxybutynin Chloride [Ditropan XL] 5 mg PO DAILY 05/24/17 [History] Vit C/E/Zn/Coppr/Lutein/Zeaxan [Preservision Areds 2 Softgel] 1 cap PO BID 05/24 [History] Acetaminophen Tab [Tylenol Tab] 1 - 2 tab PO Q6H PRN #90 tablet 02/28/18 [Rx] Follow up Appointment(s)/Referral(s): Wang Solomon DO [Doctor of Osteopathic Medicine] - 10 Days Activity/Diet/Wound Care/Special Instructions: Weightbearing as tolerated to the right lower extremity. Daily dressing changes. Sutures can be removed 7-10 days postoperatively. Please follow up with [facility] and call if any questions or concerns. [phone]. Discharge Disposition: TRANSFER TO SNF/F
[2018-02-28] MEDS: OXYBUTYNIN XL 5 MG TAB.ER.24 PO SCH (09:17)
[2018-02-28] MEDS: HEPARIN SODIUM,PORCINE 5,000 UNIT/ML 1 ML VIAL SQ SCH ×2 (09:17→21:41)
[2018-02-28] MEDS ORDERED: LIDOCAINE 2% SYG (PF) 100 MG/5 ML MISCELLANE ONE (09:49)
--- NOTE | 2018-02-28 10:43 | IR ---
EXAMINATION TYPE: IR cvc insert >=5 years DATE OF EXAM: 02/28/2018 COMPARISON: NONE CLINICAL HISTORY: Infection Needs long-term intravenous access for antibiotics. PROCEDURE: After informed consent, the skin overlying the left brachial vein was localized with ultrasound and n oted to be compressible and patent. An ultrasound image was obtained and submitted on the patient's chart. The overlying skin was prepped and draped and Lidocaine was used for local anesthesia. A ski n marilyn was made with a scalpel. Access was gained to the vein under ultrasound guidance with a 21 ga uge needle and a 0.018 inch wire was advanced. Access site was dilated with Peel-Away sheath and cat heter tailored to the appropriate length and advanced such that the distal tip is at the cavoatrial j unction. Spot image was obtained verifying placement. Catheter was fixed to the skin and a sterile dressing was placed following hemostasis. Catheter was aspirated and flushed with saline. Patient w as discharged in stable condition without complication. Maximal barrier technique is utilized. Ultra sound image is documented on the chart. Ultrasound used with sterile technique. Fluoro time and fluoroscopic images submitted to document procedure: 39 intraoperative C-arm images, 0.2 minutes fluoroscopy time IMPRESSION: STATUS POST ULTRASOUND AND FLUOROSCOPIC GUIDED PICC LINE PLACEMENT, READY FOR USE. THIS PROCEDURE WAS PERFORMED BY THE UNDERSIGNED.
[2018-02-28 15:10] LABS: Calcium 8.6 mg/dL (8.4-10.2); Potassium 4.5 mmol/L (3.5-5.1)
--- NOTE | 2018-02-28 16:37 | P.PN ---
Subjective Progress Note Date: 02/28/18 Progress note being dictated for Dr. Vargas. 02/28/2018. PICC line placed, tolerated procedure well. Maintained on gentle IV fluid hydration with renal function continuing to improve, down to 1.12. Blood pressures controlled, systolic in the 130s. Afebrile, normal WBC Objective - Vital Signs Vital signs: Vital Signs Temp 98.3 F 02/28/18 07:00 Pulse 82 02/28/18 07:00 Resp 16 02/28/18 07:00 BP 144/69 02/28/18 07:00 Pulse Ox 99 02/28/18 07:00 Intake & Output 02/27/18 02/28/18 02/28/18 18:59 06:59 18:59 Intake Total 700 Balance 700 Intake: Oral 700 Other: # Voids 1 1 1 # Bowel Movements 1 1 - Exam GENERAL: The patient is sitting up in chair, alert and oriented x3, not in any acute distress. HEENT: Pupils are round and equally reacting to light. EOMI. No scleral icterus. No conjunctival pallor. Normocephalic, atraumatic. No pharyngeal erythema. No thyromegaly. CARDIOVASCULAR: S1 and S2 present. No murmurs, rubs, or gallops. PULMONARY: Chest is clear to auscultation, no wheezing or crackles. ABDOMEN: Soft, nontender, nondistended, normoactive bowel sounds. No palpable organomegaly. MUSCULOSKELETAL: Right knee is covered with dressing, clean dry and intact EXTREMITIES: No cyanosis, clubbing, or pedal edema. NEUROLOGICAL: Gross neurological examination did not reveal any focal deficits. SKIN: No rashes. Microbiology 02/25/18 15:07 Knee - Right Anaerobic Culture - Preliminary 02/25/18 15:07 Knee - Right Anaerobic Culture - Preliminary 02/26/18 19:34 Blood Blood Culture - Preliminary No Growth after 24 hours 02/25/18 15:07 Knee - Right Gram Stain - Final 02/25/18 15:07 Knee - Right Wound Culture - Final 02/25/18 15:07 Knee - Right Gram Stain - Final 02/25/18 15:07 Knee - Right Wound Culture - Final - Labs CBC & Chem 7: 02/28/18 06:54 02/28/18 14:46 Labs: Abnormal Lab Results - Last 24 Hours (Table) 02/28/18 Range/Units 06:54 RBC 2.79 L (3.80-5.40) m/uL Hgb 8.5 L (11.4-16.0) gm/dL Hct 27.8 L (34.0-46.0) % MCHC 30.7 L (31.0-37.0) g/dL Microbiology - Last 24 Hours (Table) 02/25/18 15:07 Anaerobic Culture - Preliminary Knee - Right 02/25/18 15:07 Anaerobic Culture - Preliminary Knee - Right 02/26/18 19:34 Blood Culture - Preliminary Blood No Growth after 24 hours 02/25/18 15:07 Gram Stain - Final Knee - Right Wound Culture - Final 02/25/18 15:07 Gram Stain - Final Knee - Right Wound Culture - Final Assessment and Plan Assessment: -Abscess in the lateral aspect of the right knee: Status post incision and drainage -Renal failure most probably acute renal failure from BUN and creatinine ratio it appears like patient may stay has prerenal azotemia will continue with IV fluids increase IV fluid rate to 100 mL/h repeat basic metabolic profile tomorrow. LIAY inhibitor will be held. -Hypertension holding of LIYA inhibitor because of renal dysfunction, the blood pressures stay bit higher because of renal dysfunction. Currently controlled. -Status post PICC line placement- Plan: Continue current medication regime ,monitoring and symptomatic treatment. Change IV fluid hydration, close monitoring of renal function, electrolytes with repeat labs ordered for a.m. Discharge planning in progress, pre-CERT pending for subacute rehab. The impression and plan of care has been dictated as directed. : I performed a history and examination of this patient, discussed the same with the dictator. I agree with the dictator's note ,documented as a scribe. Any additional findings or plans will be noted.
[2018-02-28] MEDS ORDERED: SODIUM CHLORIDE 0.9% 1,000 ML IV SCH (16:45)
[2018-02-28] MEDS: VANCOMYCIN 1,250 MG in SODIUM CHLORIDE 0.9% 250 ML IVPB SCH (18:03)
[2018-02-28] MEDS: SENNOSIDES-DOCUSATE SODIUM 1 EACH TAB PO SCH (21:42)
--- NOTE | 2018-02-28 23:53 | PN ---
PROGRESS NOTE DATE OF SERVICE: 02/28/2018 REASON FOR FOLLOWUP: Right lateral knee abscess secondary to Staphylococcus lugdunensis. INTERVAL HISTORY: The patient is afebrile. She is currently breathing comfortably. The patient did get a PICC line, currently waiting for authorization for discharge to a rehab facility. Denies having any chest pain or shortness of breath, cough, abdominal pain or any diarrhea. EXAMINATION: Blood pressure 130/63 with a pulse of 79, temperature 98.5. She is 98% on room air. General description is an elderly female up in the bed in no distress. RESPIRATORY SYSTEM: Unlabored breathing. Clear to auscultation. HEART: S1, S2. Regular rate and rhythm. ABDOMEN: Soft. No tenderness. Right lateral knee area still has some drainage. No surrounding redness. LABS: Hemoglobin 8.5, white count 8.6 with a BUN of 29, creatinine 1.12. DIAGNOSTIC IMPRESSION AND PLAN: Patient with right lateral knee abscess, status post drainage. Outpatient culture positive for Streptococcus lugdunensis. The patient did have PENICILLIN, SULFA ALLERGY. She is currently on vancomycin, as the patient going to a correction facility with her vancomycin, Levaquin. Will watch her closely. She will continue on vancomycin, Pharmacy to dose, target of 15 for at least 3 weeks, with close outpatient followup. Daughter was present at bedside. Her questions were answered. MMODL / IJN: [id number] /
[2018-03-01 06:00] VITALS: BP 146/93; PULSE 89; RESP 17; TEMP 98.8
[2018-03-01] MEDS: HEPARIN SODIUM,PORCINE 5,000 UNIT/ML 1 ML VIAL SQ SCH (07:58)
[2018-03-01] MEDS: OXYBUTYNIN XL 5 MG TAB.ER.24 PO SCH (07:58)
[2018-03-01 08:19] LABS: Calcium 9.3 mg/dL (8.4-10.2); Potassium 5.1 mmol/L (3.5-5.1)
--- NOTE | 2018-03-01 15:18 | PN ---
PROGRESS NOTE DATE OF SERVICE: 03/01/2018. REASON FOR FOLLOWUP: Right leg abscess. INTERVAL HISTORY: The patient is afebrile. She is breathing comfortably. Denies having any chest pain or shortness of breath or cough. No abdominal pain. Pain to the right lateral leg is currently improved. EXAMINATION: Blood pressure 146/93 with a pulse 99, temperature 98.8. She is 99% on room air. General description is an elderly female up in the bed in no distress. RESPIRATORY SYSTEM: Unlabored breathing. Clear to auscultation anteriorly. HEART: S1, S2. Regular rate and rhythm. ABDOMEN: Soft, no tenderness. Right and left leg currently dressed up. No obvious drainage on the dressing. LABS: BUN of 28, creatinine is 1.11. Culture has been negative so far. Outpatient culture positive for Staphylococcus lugdunensis. DIAGNOSTIC IMPRESSION AND PLAN: Patient with Staphylococcus lugdunensis right lateral leg abscess with no communication to the knee joint. The patient is currently on vancomycin because of multiple antibiotic ALLERGIES TO PENICILLIN AND CEFAZOLIN. Vancomycin will continue with pharmacy to dose with target of 15 with watching kidney function for at least 3 weeks with close outpatient followup. Script has been sent in for the patient. All their questions were answered. MMODL / IJN: [id number] /
--- NOTE | 2018-03-01 15:33 | P.PN ---
Subjective Progress Note Date: 03/01/18 Progress note being dictated for Dr. Vargas. 02/28/2018. PICC line placed, tolerated procedure well. Maintained on gentle IV fluid hydration with renal function continuing to improve, down to 1.12. Blood pressures controlled, systolic in the 130s. Afebrile, normal WBC 03/01/2018 no overnight events. Systolic blood pressures ranging in the 130s to 140s. Creatinine 1.11. Potassium 5.1. Afebrile, normal WBC. Denies chest pain, palpitations or increasing shortness of breath. Right lateral leg pain improved. Awaiting discharge to subacute rehab. Objective - Vital Signs Vital signs: Vital Signs Temp 98.8 F 03/01/18 06:00 Pulse 89 03/01/18 06:00 Resp 17 03/01/18 06:00 BP 146/93 03/01/18 06:00 Pulse Ox 99 03/01/18 06:00 Intake & Output 02/28/18 03/01/18 03/01/18 18:59 06:59 18:59 Intake Total 400 Balance 400 Intake: Intake, IV Titration 400 Amount Sodium Chloride 0.9% 1, 400 000 ml @ 50 mls/hr IV . Q20H [facility] Rx#:[id number] Other: # Voids 1 2 3 - Exam GENERAL: The patient is sitting up in bed, alert and oriented x3, not in any acute distress. HEENT: Pupils are round and equally reacting to light. EOMI. No scleral icterus. No conjunctival pallor. Normocephalic, atraumatic. CARDIOVASCULAR: S1 and S2 present. No murmurs, rubs, or gallops. PULMONARY: Chest is clear to auscultation, no wheezing or crackles. ABDOMEN: Soft, nontender, nondistended, normoactive bowel sounds. No palpable organomegaly. MUSCULOSKELETAL: Right knee is covered with dressing, clean dry and intact EXTREMITIES: No cyanosis, clubbing, or pedal edema. NEUROLOGICAL: Gross neurological examination did not reveal any focal deficits. SKIN: No rashes. Microbiology 02/25/18 15:07 Knee - Right Gram Stain - Final 02/25/18 15:07 Knee - Right Wound Culture - Final 02/26/18 19:34 Blood Blood Culture - Preliminary No Growth after 48 hours 02/25/18 15:07 Knee - Right Anaerobic Culture - Preliminary 02/25/18 15:07 Knee - Right Anaerobic Culture - Preliminary 02/25/18 15:07 Knee - Right Gram Stain - Final 02/25/18 15:07 Knee - Right Wound Culture - Final - Labs CBC & Chem 7: 02/28/18 06:54 03/01/18 07:16 Labs: Abnormal Lab Results - Last 24 Hours (Table) 03/01/18 Range/Units 07:16 Chloride 109 H (98-107) mmol/L BUN 28 H (7-17) mg/dL Creatinine 1.11 H (0.52-1.04) mg/dL Microbiology - Last 24 Hours (Table) 02/25/18 15:07 Gram Stain - Final Knee - Right Wound Culture - Final 02/26/18 19:34 Blood Culture - Preliminary Blood No Growth after 48 hours Assessment and Plan Assessment: - Staphylococcus lugdunensis Abscess in the lateral aspect of the right knee: Status post incision and drainage. -Renal failure most probably acute renal failure from BUN and creatinine ratio , appears to be prerenal azotemia. -Hypertension holding of LIYA inhibitor because of renal dysfunction, the blood pressures stay bit higher because of renal dysfunction. Currently controlled. -Status post PICC line placement- Plan: Continue current medication regime ,monitoring and symptomatic treatment. Potassium 5.1, diet adjusted to low potassium. Close monitoring of electrolytes and renal function. Awaiting discharge to subacute rehab. The impression and plan of care has been dictated as directed. : I performed a history and examination of this patient, discussed the same with the dictator. I agree with the dictator's note ,documented as a scribe. Any additional findings or plans will be noted.
[2018-03-02] MEDS ORDERED: VANCOMYCIN TROUGH DUE 1 EACH MISC MISCELLANE ONE (17:00)
== END 2018-03-01 15:00 | DRG 603 ==
LOC: OR 10:33 → EDSTATUS 12:35 → 4MS4W 15:16 → OR 02-26 09:37
PROVIDERS: ADMIT Orthopaedic Surgery; ATTEND Orthopaedic Surgery
PROC: 0H9KXZZ Drainage of Right Lower Leg Skin, External Approach (ICD-10-PCS; principal; 2018-02-25 12:30)
PROC: 02HV33Z Insertion of Infusion Device into Superior Vena Cava, Percutaneous Approach (ICD-10-PCS; 2018-02-28 07:30)
DX: L02.415 Cutaneous abscess of right lower limb (principal); N17.9 Acute kidney failure, unspecified; I10 Essential (primary) hypertension; M19.90 Unspecified osteoarthritis, unspecified site; R32 Unspecified urinary incontinence; K52.9 Noninfective gastroenteritis and colitis, unspecified; Z96.651 Presence of right artificial knee joint; L03.115 Cellulitis of right lower limb; B95.1 Streptococcus, group B, as the cause of diseases classified elsewhere; Z87.891 Personal history of nicotine dependence; Z90.49 Acquired absence of other specified parts of digestive tract; Z88.0 Allergy status to penicillin; Z88.2 Allergy status to sulfonamides; Z88.1 Allergy status to other antibiotic agents
CPT/HCPCS: 36569; 76937; 77001; 80048; 82607; 84100; 85025; 85652; 86140; 87040; 87070; 87075; 87205